=== PATIENT | female | born 1970 | race Caucasian/White ===

== ENCOUNTER → 2017-01-01 | Outpatient (CLI) | payer OTHER ==
[~2017-01-01] MED LIST: CIPRO PO; ELMIRON100 MG PO; IBUPROFEN PO; NORCO 10/325 TA1 TAB PO; PHARMACY; PYRIDIUM PO; SEASONIQUE PO; SOMA PO; TYLOX 5/500 CAP1 CAP PO; ULTRAM PO; VICODIN PO
== END | disposition home or self-care (01) ==
LOC: CLAB 08:03
DX: Z51.81 Encounter for therapeutic drug level monitoring (principal); Z79.899 Other long term (current) drug therapy
CPT/HCPCS: 36415; 80164

== ENCOUNTER → 2017-03-19 | Outpatient (CLI) | payer OTHER ==
--- NOTE | ~2017-03-19 | CR214 ---
[facility] A Service of [facility] & [facility] RADIOLOGY TEXT RESULTS PATIENT: MONIQUE LUNSFORD LOCATION: [facility] : 70 UNIT #: [id number] AGE: [address]: Edwardo Bah MD SEX: F ORDER DR: [id number] [facility] [address] [place], [place] [address] [id number] O MR#: [id number] Acc #: [id number] NAME: MONIQUE GLORIA : 1970 SEX: F STUDY DATE/TIME: 03/19/2017 11:07 UNIT: [facility] ROOM: STUDY DESCRIPTION: CR SItz Marker Study Day 0 Attending Physician: Edwardo Bah M.D. Referring Physician: Edwardo Bah M.D. Ordering Physician: Edwardo Bah M.D. Primary Care Physician: Sindhu lBanco M.D. MEDICAL IMAGING REPORT This report is preliminary unless electronic signature is present EXAM Sitz marker study day 0, KUB, 03/19/2017, [facility]. HISTORY 46-year-old woman with chronic constipation. TECHNIQUE 2 KUBs are provided, 1 labeled "rcis" and 1 labeled "day 0". FINDINGS Day 0 KUB confirms sitz marker capsule in the stomach. Surgical clips consistent with a previous cholecystectomy. Suggestion of mild hepatomegaly. Followup KUBs as requested by the referring physician, with final KUB and report on day five. IMPRESSION Sitz marker capsule identified in the stomach on day 0. Dictated by... Jamel Felipe M.D. THIS IS AN ELECTRONICALLY VERIFIED REPORT Jamel Felipe M.D. at 03/26/2017 7:11 AM MICHEAL/dianne TD: 03/19/2017 15:52 JOB #: [id number] MEDICAL IMAGING REPORT Page 1 of 1 COPY
== END | disposition home or self-care (01) ==
LOC: CRAD 10:44
DX: K59.09 Other constipation (principal)
CPT/HCPCS: 74241

== ENCOUNTER → 2017-03-22 | Outpatient (CLI) | payer OTHER ==
--- NOTE | ~2017-03-22 | CR7 ---
[facility] A Service of [facility] & [facility] RADIOLOGY TEXT RESULTS PATIENT: MONIQUE LUNSFORD LOCATION: [facility] : 70 UNIT #: [id number] AGE: [address]: Edwardo Bah MD SEX: F ORDER DR: [id number] [facility] [address] [place], [place] [address] [id number] O MR#: [id number] Acc #: [id number] NAME: MONIQUE LUNSFORD : 1970 SEX: F STUDY DATE/TIME: 03/22/2017 11:21 UNIT: [facility] ROOM: STUDY DESCRIPTION: CR Abdomen Single AP View Attending Physician: Edwardo Bah M.D. Referring Physician: Edwardo Bah M.D. Ordering Physician: Edwardo Bah M.D. Primary Care Physician: Sindhu Blanco M.D. MEDICAL IMAGING REPORT This report is preliminary unless electronic signature is present EXAM Single view abdomen. INDICATIONS Constipation. Sitz marker study. FINDINGS Single AP view of the abdomen compared to 03/19/2017. The bowel gas pattern is nonobstructive. There are 5 remaining sitz markers. There are 2 Sitz markers in the descending colon and 3 in the rectum. Cholecystectomy clips in the right upper quadrant. IMPRESSION 5 remaining sitz markers, 2 in the descending colon and 3 in the rectum. Dictated by... Prasanna Montiel M.D. THIS IS AN ELECTRONICALLY VERIFIED REPORT Prasanna Montiel M.D. at 03/23/2017 9:15 AM CURRY/leola TD: 03/23/2017 08:37 JOB #: [id number] MEDICAL IMAGING REPORT Page 1 of 1 COPY
== END | disposition home or self-care (01) ==
LOC: CRAD 11:03
DX: K59.00 Constipation, unspecified (principal)
CPT/HCPCS: 74000

== ENCOUNTER → 2017-03-24 | Outpatient (CLI) | payer OTHER ==
--- NOTE | ~2017-03-24 | CR7 ---
[facility] A Service of [facility] & [facility] RADIOLOGY TEXT RESULTS PATIENT: MONIQUE LUNSOFRD LOCATION: [facility] : 70 UNIT #: [id number] AGE: [address]: Edwardo Bah MD SEX: F ORDER DR: [id number] [facility] [address] [place], [place] [address] [id number] O MR#: [id number] Acc #: [id number] NAME: MONIQUE LUNSFORD : 1970 SEX: F STUDY DATE/TIME: 03/24/2017 10:47 UNIT: [facility] ROOM: STUDY DESCRIPTION: CR Abdomen Single AP View Attending Physician: Edwardo Bah M.D. Referring Physician: Edwardo Bah M.D. Ordering Physician: Edwardo Bah M.D. Primary Care Physician: Sindhu Blanco M.D. MEDICAL IMAGING REPORT This report is preliminary unless electronic signature is present EXAM KUB HISTORY Constipation. Sitz ion study. COMPARISON 03/22/2017 TECHNIQUE Single view of the abdomen was obtained. FINDINGS A single view of the abdomen shows no residual sitz markers on day 5. The bowel gas pattern is normal. Dictated by... Edwardo Hewitt M.D. THIS IS AN ELECTRONICALLY VERIFIED REPORT Edwardo Hewitt M.D. at 03/24/2017 4:41 PM JESUS/ariel TD: 03/24/2017 11:38 JOB #: [id number] MEDICAL IMAGING REPORT Page 1 of 1 COPY
== END | disposition home or self-care (01) ==
LOC: CRAD 10:35
DX: K59.00 Constipation, unspecified (principal)
CPT/HCPCS: 74000